=== PATIENT | male | born 1955 | race Caucasian/White ===

== ENCOUNTER 2016-06-02 11:53 | Inpatient (IN) | payer OTHER ==
[~2016-06-02] VITALS: Ht 182.9 cm; Wt 142.7 kg
[2016-06-02] MEDS ORDERED: SODIUM CHLORIDE 0.9% 1,000 ML IVB ONE (12:47)
[2016-06-02] MEDS ORDERED: ONDANSETRON HCL 4 MG/2 ML VIAL IV ONE ×2 (13:15→17:00)
[2016-06-02] MEDS ORDERED: MORPHINE SULF INJ 2 MG/ML SYRINGE 1ML IV ONE (13:15)
[2016-06-02 14:17] LABS: Basophils # (auto) 0 uL; Basophils % (auto) 0.2 % (0.0-2.0); DEFINITIVE VIEW TRANSMISSION; Eosinophils # (auto) 0.2 uL; Eosinophils % (auto) 1.6 % (0.0-7.0); Hematocrit 42.1 % (41.0-53.0); Hemoglobin 13.2 g/dL (13.5-17.5); Lymphocytes # (auto) 1.4 uL; Lymphocytes % (auto) 10.6 % (10.0-50.0); Mean Corpuscular Hemoglobin 24.8 pg (28.0-32.0); Mean Corpuscular Hgb Conc. 31.5 g/dL (32.0-36.0); Mean Platelet Volume 11.1 fL (7.4-10.4); Monocytes % (auto) 7.6 % (0.0-12.0); Neutrophils # (auto) 10.4 uL; Platelet Count (auto) 200 10^3/uL (140-450); Red Cell Distribution Width 18.1 % (11.6-16.0); SUSPECT VIEW TRANSMISSION; White Blood Cell 13.1 10^3/uL (4.4-10.8)
[2016-06-02] MEDS ORDERED: HYDROmorphone HCL 2 MG/ML VL IV ONE ×3 (14:30→18:30)
[2016-06-02 14:35] LABS: Alkaline Phosphatase 65 U/L (45-117); Anion Gap 8 (5-15); Aspartate Aminotransferase 13 U/L (15-37); BUN/Creatinine Ratio 16.7; Bilirubin, Total 0.3 mg/dL (0.2-1.0); Blood Urea Nitrogen 12 mg/dL (7-18); Calcium 8.5 mg/dL (8.5-10.1); Carbon Dioxide 27 mmol/L (21-32); Chloride 111 mmol/L (98-107); GFR African American 144 mL/min; GFR Non-African American 119 mL/min; Glucose 102 mg/dL (74-106); Magnesium 2.3 mg/dL (1.6-2.6); Potassium 4.4 mmol/L (3.5-5.1); Sodium 146 mmol/L (136-145); Total Protein 6.8 g/dL (6.4-8.2)
[2016-06-02 16:14] LABS: Prothrombin Time 12.9 sec (9.37-12.3)
[2016-06-02 16:15] LABS: INR 1.24 (0.9-1.15); Partial Thromboplastin Time 27.6 sec (22.64-33.71)
[2016-06-02] MEDS ORDERED: cefTRIAXone 1GM/50ML D5W 50 ML IV ONE (18:45)
[2016-06-02] MEDS ORDERED: DOCUSATE SOD 100 MG CAP PO PRN (19:15)
[2016-06-02] MEDS ORDERED: NITROGLYCERIN 0.4 MG SL TAB SL PRN ×2 (19:15→20:45)
[2016-06-02] MEDS ORDERED: ONDANSETRON HCL 4 MG/2 ML VIAL IV PRN ×2 (19:15→20:45)
[2016-06-02] MEDS ORDERED: DEXTROSE (50%) 50ML SYRG IV PRN ×2 (19:15→21:45)
[2016-06-02] MEDS ORDERED: HYDROmorphone HCL 2 MG/ML VL IV PRN (19:15)
[2016-06-02] MEDS ORDERED: MORPHINE SULF INJ 2 MG/ML SYRINGE 1ML IV PRN ×3 (19:15→20:45)
[2016-06-02 19:36] LABS: Urine Bilirubin Negative (Negative); Urine Blood Negative /uL (Negative); Urine Color Yellow (Yellow); Urine Glucose Normal (Normal); Urine Ketone Negative (Negative); Urine Mucus FEW (None Seen); Urine RBC 6 /hpf (0 - 3); Urine Urobilinogen Normal (Negative)
[2016-06-02 19:37] LABS: Urine Nitrite POSITIVE (Negative)
[2016-06-02 21:31] VITALS: BP 130/71
[2016-06-02] MEDS ORDERED: SPIR25TA89 PO (22:00)
[2016-06-02] MEDS ORDERED: INSLANTI SC (22:00)
[2016-06-02] MEDS ORDERED: FENT75DI2 TD (22:00)
[2016-06-02] MEDS ORDERED: ENAL2.5T PO (22:00)
[2016-06-02] MEDS ORDERED: CARV6.2551 PO (22:00)
[2016-06-02] MEDS ORDERED: METF-312 PO (22:00)
[2016-06-02] MEDS ORDERED: GLIP-115 PO (22:00)
[2016-06-02] MEDS ORDERED: ACCU-CHEK COMFORT CURVE STRIP VI SCH (22:00)
[2016-06-02] MEDS ORDERED: HYDR-3682 PO (22:00)
[2016-06-02] MEDS ORDERED: PROM25TA5 PO (22:00)
[2016-06-02] MEDS ORDERED: FURO40TA4 PO (22:00)
[2016-06-02] MEDS ORDERED: GABA300C8 PO (22:00)
[2016-06-02] MEDS ORDERED: SIMV-13 PO (22:00)
[2016-06-02] MEDS ORDERED: POTA10TA79 PO (22:00)
[2016-06-02] MEDS ORDERED: InsuLIN REG 1unit/0.01ml Soln (100units/ml) SC SCH (22:00)
[2016-06-02 23:55] VITALS: BP 130/71
[2016-06-03] MEDS: SOD CHL 0.45% 1,000 ML IV SCH ×2 (00:36→10:05)
[2016-06-03] MEDS: ACCU-CHEK COMFORT CURVE STRIP VI SCH ×4 (00:36→18:20)
[2016-06-03] MEDS: HYDROmorphone HCL 2 MG/ML VL IV PRN ×5 (02:30→21:56)
[2016-06-03 05:17] LABS: Basophils # (auto) 0 uL; Basophils % (auto) 0.2 % (0.0-2.0); DEFINITIVE VIEW TRANSMISSION; Eosinophils # (auto) 0.4 uL; Eosinophils % (auto) 3.5 % (0.0-7.0); Hematocrit 41.2 % (41.0-53.0); Lymphocytes # (auto) 1.3 uL; Lymphocytes % (auto) 12.5 % (10.0-50.0); Mean Corpuscular Hgb Conc. 31.6 g/dL (32.0-36.0); Mean Corpuscular Volume 78.9 fL (80.0-100.0); Mean Platelet Volume 10.8 fL (7.4-10.4); Monocytes # (auto) 0.9 uL; Monocytes % (auto) 8.8 % (0.0-12.0); Neutrophils # (auto) 7.7 uL; Platelet Count (auto) 188 10^3/uL (140-450); Red Cell Distribution Width 17.9 % (11.6-16.0); White Blood Cell 10.2 10^3/uL (4.4-10.8)
[2016-06-03 05:27] VITALS: BP 105/60
[2016-06-03 05:30] VITALS: BP 139/64
[2016-06-03 05:49] LABS: Albumin 3.1 g/dL (3.4-5.0); BUN/Creatinine Ratio 15.4; Bilirubin, Total 0.4 mg/dL (0.2-1.0); Calcium 8.6 mg/dL (8.5-10.1); Potassium 4.1 mmol/L (3.5-5.1)
[2016-06-03] MEDS: InsuLIN REG 1unit/0.01ml Soln (100units/ml) SC SCH ×4 (06:00→18:38)
[2016-06-03 08:57] VITALS: BP 128/77
[2016-06-03] MEDS ORDERED: HYDROcodone-ACET 5/325MG TAB PO PRN (10:45)
[2016-06-03] MEDS ORDERED: FUROSEMIDE 40 MG TAB PO ONE (11:30)
[2016-06-03] MEDS ORDERED: CARVEDILOL 3.125 MG TAB PO ONE (11:30)
[2016-06-03 12:00] VITALS: BP 125/71
[2016-06-03] MEDS ORDERED: ENALAPRIL MALEATE 10 MG TAB PO ONE (14:00)
[2016-06-03] MEDS: GABAPENTIN 300 MG CAP PO SCH ×2 (15:02→21:55)
[2016-06-03 17:26] VITALS: BP 132/76
[2016-06-03] MEDS ORDERED: cefTRIAXone 1GM/50ML D5W 50 ML IV SCH (18:00)
[2016-06-03] MEDS ORDERED: HYDROmorphone HCL 2 MG/ML VL IV ONE (18:00)
[2016-06-03 21:22] VITALS: BP 130/79
[2016-06-03] MEDS ORDERED: CARVEDILOL 3.125 MG TAB PO SCH (22:00)
[2016-06-03] MEDS ORDERED: ATORVASTATIN 20 MG TAB PO SCH (22:00)
[2016-06-04] MEDS ORDERED: ENALAPRIL MALEATE 10 MG TAB PO SCH (10:00)
[2016-06-04] MEDS ORDERED: SPIRONOLACTONE 25 MG TAB PO SCH (10:00)
[2016-06-04] MEDS ORDERED: FUROSEMIDE 40 MG TAB PO SCH (10:00)
== END 2016-06-03 22:25 | disposition short-term general hospital (02) | DRG 536 ==
LOC: EDBD 11:53 → ER 11:57 → OVERFLOW 11:58 → SUATTDRO 19:01 → EAST 20:33
PROVIDERS: ADMIT Nurse Practitioner Acute Care; ATTEND Internal Medicine
DX: S72.141A Displaced intertrochanteric fracture of right femur, initial encounter for closed fracture (principal); E44.1 Mild protein-calorie malnutrition; N39.0 Urinary tract infection, site not specified; Z68.41 Body mass index [BMI] 40.0-44.9, adult; E66.01 Morbid (severe) obesity due to excess calories; E11.40 Type 2 diabetes mellitus with diabetic neuropathy, unspecified; E78.5 Hyperlipidemia, unspecified; F17.210 Nicotine dependence, cigarettes, uncomplicated; I44.7 Left bundle-branch block, unspecified; I50.9 Heart failure, unspecified; F32.9 Major depressive disorder, single episode, unspecified; G89.29 Other chronic pain; M54.5 Low back pain; J32.0 Chronic maxillary sinusitis; I11.0 Hypertensive heart disease with heart failure; J44.9 Chronic obstructive pulmonary disease, unspecified; W01.0XXA Fall on same level from slipping, tripping and stumbling without subsequent striking against object, initial encounter; Z83.3 Family history of diabetes mellitus; Y93.89 Activity, other specified; Y99.8 Other external cause status; Y92.098 Other place in other non-institutional residence as the place of occurrence of the external cause; Z89.611 Acquired absence of right leg above knee; Z79.4 Long term (current) use of insulin; Z80.9 Family history of malignant neoplasm, unspecified; Z88.8 Allergy status to other drugs, medicaments and biological substances
CPT/HCPCS: 36415; 70450; 71010; 73501; 73700; 80053; 81001; 82962; 83735; 84484; 85025; 85610; 85730; 93005; 93306; 96361; 96374; 96375; 96376; J0696; J2405